=== PATIENT | female | born 1955 | race African-American/Black ===

== ENCOUNTER 2021-07-30 12:24 | Emergency (ER) | payer MEDICARE, MEDICAID ==
[~2021-07-30] VITALS: Ht 162.6 cm; Wt 54.0 kg
[2021-07-30 15:10] LABS: BASOPHILS % 0.6 % (0.0-2.0); EOSINOPHILS % 1.3 % (0.0-5.0); HEMATOCRIT. 34.6 % (36.0-48.0); HEMOGLOBIN. 11.5 g/dL (12.0-16.0); LYMPHOCYTES % 40.2 % (20.0-50.0); MEAN CORPUSCULAR HEMOGLOBIN 30.4 pg (28.0-32.0); MEAN CORPUSCULAR VOLUME 91.4 fL (81.0-99.0); MEAN PLATELET VOLUME 9.1 fl (7.4-10.4); MONOCYTES % 5.3 % (2.0-8.0); NEUTROPHILS % 52.6 % (40.0-76.0); PLATELET 331 x1000/uL (130-400); RED BLOOD CELL COUNT 3.78 mill/uL (4.2-5.4); RED CELL DISTRIBUTION WIDTH 14.8 % (11.6-14.6)
[2021-07-30 15:14] LABS: CHLORIDE 108 mEq/L (98-107)
[2021-07-30 16:21] VITALS: BP 131/77
== END 2021-07-30 17:14 | disposition home or self-care (01) ==
LOC: ER 12:24
DX: Z00.00 Encounter for general adult medical examination without abnormal findings (principal); Z77.120 Contact with and (suspected) exposure to mold (toxic); J45.909 Unspecified asthma, uncomplicated; E78.00 Pure hypercholesterolemia, unspecified; I10 Essential (primary) hypertension; Z88.2 Allergy status to sulfonamides
CPT/HCPCS: 36415; 80053; 85025; 99283; Z7610

== ENCOUNTER 2022-11-28 04:28 | Inpatient (IN) | payer MEDICARE, MEDICAID ==
[~2022-11-28] VITALS: Ht 157.5 cm; Wt 52.6 kg
[2022-11-28] MEDS ORDERED: IPRATROPIUM BROMIDE (0.02%) 0.5MG/2.5ML NEB HHN STA (05:28)
[2022-11-28] MEDS ORDERED: METHYLPREDNISOLONE SOD SUCC 125 MG/2 ML VIAL IV STA (05:28)
[2022-11-28] MEDS: ALBUTEROL (0.083%) 2.5MG/3ML NEB HHN SCH ×3 (05:47→06:16)
[2022-11-28 06:04] LABS: BASOPHILS % 0.8 % (0.0-2.0); HEMATOCRIT. 29.2 % (36.0-48.0); HEMOGLOBIN. 9.5 g/dL (12.0-16.0); LYMPHOCYTES % 31.6 % (20.0-50.0); MEAN CORPUSCULAR HEMOGLOBIN 28.2 pg (28.0-32.0); MEAN PLATELET VOLUME 8.4 fl (7.4-10.4); MONOCYTES % 6.4 % (2.0-8.0); NEUTROPHILS % 60.2 % (40.0-76.0); PLATELET 397 x1000/uL (130-400); RED BLOOD CELL COUNT 3.35 mill/uL (4.2-5.4); RED CELL DISTRIBUTION WIDTH 15.8 % (11.6-14.6)
[2022-11-28 06:05] LABS: CLARITY URINE CLEAR (CLEAR); COLOR URINE YELLOW (YELLOW); KETONES URINE NEGATIVE (NEGATIVE); LEUKOCYTE ESTERASE URINE NEGATIVE (NEGATIVE); NITRITE URINE NEGATIVE (NEGATIVE); OCCULT BLOOD URINE NEGATIVE (NEGATIVE); PH URINE 7.5 (4.5-8.0); PROTEIN URINE 2+ (NEGATIVE); SPECIFIC GRAVITY URINE 1.009 (1.005-1.030); UROBILINOGEN URINE 0.2 E.U./dL (0.2-1.0)
[2022-11-28] MEDS ORDERED: HYDRALAZINE 20MG/ML VIAL IV ONE (06:15)
[2022-11-28 06:16] LABS: CHLORIDE 112 mEq/L (98-107)
[2022-11-28] MEDS ORDERED: DOXYCYCLINE HYCLATE 100 MG/VIAL IV ONE (06:30)
[2022-11-28] MEDS ORDERED: DOXYCYCLINE 100MG in DEXTROSE 5% WATER 100ML IV NR (06:30)
[2022-11-28] MEDS ORDERED: LABETALOL HCL 200MG TABLET PO SCH (11:15)
[2022-11-28] MEDS ORDERED: HYDROCODONE/ACETAMINOPHEN 5/325MG TABLET PO ONE (11:15)
[2022-11-28] MEDS ORDERED: ASPIRIN 81MG TABLET PO ONE (11:15)
[2022-11-28] MEDS ORDERED: AMLODIPINE 10MG TABLET PO ONE (11:15)
[2022-11-28] MEDS ORDERED: CLONIDINE 0.3MG TABLET PO ONE (11:15)
[2022-11-28] MEDS ORDERED: ACETAMINOPHEN 325MG TABLET PO PRN (11:30)
[2022-11-28] MEDS ORDERED: ONDANSETRON HCL 4MG/2ML INJ IV PRN (11:30)
[2022-11-28] MEDS ORDERED: IPRATROPIUM BROMIDE (0.02%) 0.5MG/2.5ML NEB HHN PRN (11:45)
[2022-11-28] MEDS ORDERED: ALBUTEROL (0.083%) 2.5MG/3ML NEB HHN PRN (11:45)
[2022-11-28] MEDS ORDERED: LEVOFLOXACIN 750MG PREMIX 150 ML IV SCH ×2 (12:00→17:30)
[2022-11-28] MEDS ORDERED: IPRATROPIUM/ALBUTEROL 0.5-3(2.5)MG/3ML NEB HHN SCH ×2 (12:00→18:00)
[2022-11-28] MEDS: HYDRALAZINE 20MG/ML VIAL IV ONE ×2 (12:47→12:50)
[2022-11-28 13:45] VITALS: BP 169/103
[2022-11-28 13:56] VITALS: BP 169/103
[2022-11-28] MEDS ORDERED: GUAIFENESIN/CODEINE 100-10MG/5ML UDC PO PRN (15:15)
[2022-11-28 15:26] LABS: *AMPHETAMINES SCREEN URINE NEGATIVE (NEGATIVE); *BARBITURATES SCREEN URINE NEGATIVE (NEGATIVE); *BENZODIAZEPINES SCREEN URINE NEGATIVE (NEGATIVE); *COCAINE SCREEN URINE PRESUMTIVE POSITIVE (NEGATIVE); CANNABINOID URINE SCREEN NEGATIVE (NEGATIVE); METHADONE URINE SCREEN NEGATIVE (NEGATIVE); OPIATES URINE SCREEN NEGATIVE (NEGATIVE); PHENCYCLIDINE URINE SCREEN NEGATIVE (NEGATIVE)
[2022-11-28 16:00] VITALS: BP 181/82
[2022-11-28] MEDS: BENZONATATE 100MG CAPSULE PO SCH ×2 (16:53→20:50)
[2022-11-28] MEDS: PREDNISONE 20MG TABLET PO SCH (16:53)
[2022-11-28 18:00] VITALS: BP 140/58
[2022-11-28] MEDS ORDERED: LABE200T9 PO (18:40)
[2022-11-28] MEDS ORDERED: PHEN-434 PO (18:40)
[2022-11-28] MEDS ORDERED: ASPI-986 MT (18:40)
[2022-11-28] MEDS ORDERED: OMEP20TA15 PO (18:40)
[2022-11-28] MEDS ORDERED: AMLO10TA80 PO (18:40)
[2022-11-28] MEDS ORDERED: BACL-141 MT (18:40)
[2022-11-28 20:00] VITALS: BP 140/58
[2022-11-28] MEDS ORDERED: VANCOMYCIN 1G PREMIX 200 ML IV NR (20:00)
[2022-11-28] MEDS: HYDROCODONE/ACETAMINOPHEN 5/325MG TABLET PO PRN (20:49)
[2022-11-28] MEDS: CLONIDINE 0.1MG TABLET PO PRN (20:49)
[2022-11-28 22:00] VITALS: BP 80/52
[2022-11-29] VITALS (13 sets, daily range): BP systolic 138–194; BP diastolic 64–94
[2022-11-29] MEDS: CLONIDINE 0.1MG TABLET PO PRN ×3 (00:45→13:55)
[2022-11-29] MEDS: HYDROCODONE/ACETAMINOPHEN 5/325MG TABLET PO PRN ×3 (04:34→19:01)
[2022-11-29 06:03] LABS: CHLORIDE 105 mEq/L (98-107)
[2022-11-29 06:16] LABS: BASOPHILS % 0.1 % (0.0-2.0); EOSINOPHILS % 0.2 % (0.0-5.0); HEMOGLOBIN. 8.2 g/dL (12.0-16.0); LYMPHOCYTES % 19.1 % (20.0-50.0); MEAN CORPUSCULAR HEMOGLOBIN 28.3 pg (28.0-32.0); MEAN CORPUSCULAR VOLUME 86.4 fL (81.0-99.0); MEAN PLATELET VOLUME 8.7 fl (7.4-10.4); MONOCYTES % 4.8 % (2.0-8.0); NEUTROPHILS % 75.8 % (40.0-76.0); PLATELET 362 x1000/uL (130-400); RED BLOOD CELL COUNT 2.89 mill/uL (4.2-5.4); RED CELL DISTRIBUTION WIDTH 15.4 % (11.6-14.6)
[2022-11-29] MEDS: VANCOMYCIN 500MG PREMIX 100 ML IV SCH ×2 (08:32→20:51)
[2022-11-29] MEDS: AMLODIPINE 10MG TABLET PO SCH (08:32)
[2022-11-29] MEDS: BENZONATATE 100MG CAPSULE PO SCH ×3 (08:32→21:49)
[2022-11-29] MEDS: PREDNISONE 20MG TABLET PO SCH (08:35)
[2022-11-29] MEDS: BUDESONIDE 0.5MG/2ML NEB HHN SCH ×2 (08:55→21:27)
[2022-11-29] MEDS: ALBUTEROL (0.083%) 2.5MG/3ML NEB HHN SCH ×3 (08:55→21:28)
[2022-11-29] MEDS: IPRATROPIUM BROMIDE (0.02%) 0.5MG/2.5ML NEB HHN SCH ×3 (08:55→21:27)
[2022-11-29] MEDS ORDERED: GUAIFENESIN/CODEINE 200-20MG/10ML UDC PO PRN (09:14)
[2022-11-29] MEDS ORDERED: NALOXONE HCL 0.4MG/ML VIAL IV PRN (09:15)
[2022-11-29] MEDS: OMEPRAZOLE 20MG CAPSULE EXTENDED RELEASE PO SCH (09:33)
[2022-11-29] MEDS ORDERED: P20 PO (11:37)
[2022-11-29] MEDS ORDERED: LEVO750T68 MT (11:37)
[2022-11-29] MEDS ORDERED: FLUT1DIS3 INH (11:37)
[2022-11-29] MEDS: LABETALOL HCL 200MG TABLET PO SCH (12:28)
[2022-11-29] MEDS: GABAPENTIN 400MG CAPSULE PO SCH ×2 (13:24→20:52)
[2022-11-29] MEDS ORDERED: PHENYTOIN SODIUM EXTENDED 100MG CAPSULE PO SCH (14:00)
[2022-11-29] MEDS ORDERED: QUET200T PO (21:24)
[2022-11-29] MEDS: QUETIAPINE FUMARATE 50MG TABLET PO SCH (21:49)
[2022-11-30] VITALS (10 sets, daily range): BP systolic 147–195; BP diastolic 63–103
[2022-11-30] MEDS: ALBUTEROL (0.083%) 2.5MG/3ML NEB HHN SCH ×3 (02:56→15:20)
[2022-11-30] MEDS: IPRATROPIUM BROMIDE (0.02%) 0.5MG/2.5ML NEB HHN SCH ×3 (02:56→15:20)
[2022-11-30] MEDS: GABAPENTIN 400MG CAPSULE PO SCH ×2 (05:19→14:32)
[2022-11-30] MEDS: BENZONATATE 100MG CAPSULE PO SCH ×2 (05:20→14:32)
[2022-11-30] MEDS: OMEPRAZOLE 20MG CAPSULE EXTENDED RELEASE PO SCH (05:20)
[2022-11-30] MEDS: HYDROCODONE/ACETAMINOPHEN 5/325MG TABLET PO PRN ×2 (05:28→10:26)
[2022-11-30 06:12] LABS: HIV SCREEN 4G Non Reactive (Non Reactive)
[2022-11-30] MEDS: QUETIAPINE FUMARATE 50MG TABLET PO SCH (08:14)
[2022-11-30] MEDS: AMLODIPINE 10MG TABLET PO SCH (08:15)
[2022-11-30] MEDS: LABETALOL HCL 200MG TABLET PO SCH (08:15)
[2022-11-30] MEDS: PREDNISONE 20MG TABLET PO SCH (08:15)
[2022-11-30] MEDS: VANCOMYCIN 500MG PREMIX 100 ML IV SCH (08:24)
[2022-11-30] MEDS: BUDESONIDE 0.5MG/2ML NEB HHN SCH (08:44)
[2022-11-30] MEDS ORDERED: LEVOFLOXACIN 750MG PREMIX 150 ML IV SCH (11:00)
[2022-11-30] MEDS: CLONIDINE 0.1MG TABLET PO PRN (16:55)
[2022-12-01] MEDS ORDERED: FAMOTIDINE 20MG TABLET PO SCH (09:00)
== END 2022-11-30 19:10 | disposition home or self-care (01) | DRG 139 ==
LOC: ER 04:28 → 5EST 10:47 → EDBEDREQTM 10:49 → EDBEDREQSVC 10:49 → EDBEDREQ 10:49 → EDBEDREQSVC 11:57
PROVIDERS: ADMIT Internal Medicine; ATTEND Internal Medicine
DX: J18.9 Pneumonia, unspecified organism (principal); J96.00 Acute respiratory failure, unspecified whether with hypoxia or hypercapnia; J44.1 Chronic obstructive pulmonary disease with (acute) exacerbation; B19.20 Unspecified viral hepatitis C without hepatic coma; E21.3 Hyperparathyroidism, unspecified; I10 Essential (primary) hypertension; Z20.822 Contact with and (suspected) exposure to COVID-19; E78.00 Pure hypercholesterolemia, unspecified; D72.829 Elevated white blood cell count, unspecified; E78.5 Hyperlipidemia, unspecified; F14.90 Cocaine use, unspecified, uncomplicated; F17.210 Nicotine dependence, cigarettes, uncomplicated; Z88.2 Allergy status to sulfonamides; Z88.8 Allergy status to other drugs, medicaments and biological substances; Z88.1 Allergy status to other antibiotic agents; Z79.899 Other long term (current) drug therapy; J44.0 Chronic obstructive pulmonary disease with (acute) lower respiratory infection
CPT/HCPCS: 36415; 71045; 80048; 80053; 80202; 80305; 81003; 83605; 84145; 84484; 85025; 85379; 87389; 87426; 87804; 93005; 94640; 94644; 99291; C9803; J0360; J1956; J2405; J2930; J3370; J3490; J7060; J7512; J7626

== ENCOUNTER 2024-07-13 00:44 | Inpatient (IN) | payer MEDICARE, MEDICAID ==
[~2024-07-13] VITALS: Ht 157.5 cm; Wt 59.0 kg
[2024-07-13] VITALS (87 sets, daily range): BP systolic 118–212; BP diastolic 56–106; PULSE 118–134; RESP 12–29; TEMP 36.78072–37.1964; O2SAT 96–100
[~2024-07-13 00:44] MED LIST: ASPI-986 MT; CLON0.2T MT; DILT120C88 MT; FAMO-135 MT; FLUT1DIS3 INH; LOSA50TA41 PO; OMEP20TA15 PO; QUET200T PO
[2024-07-13 01:12] LABS: BASOPHILS % 0.7 % (0.0-2.0); DIFFERENTIAL COMMENT 0; EOSINOPHILS % 0.5 % (0.0-5.0); HEMATOCRIT. 25.6 % (36.0-48.0); HEMOGLOBIN. 7.5 g/dL (12.0-16.0); LYMPHOCYTES % 38.7 % (20.0-50.0); MEAN CORPUSCULAR HEMOGLOBIN 26.2 pg (28.0-32.0); MEAN CORPUSCULAR HGB CONC 29.5 g/dL (31.0-37.0); MEAN CORPUSCULAR VOLUME 88.9 fL (81.0-99.0); MEAN PLATELET VOLUME 10.1 fl (7.4-10.4); MONOCYTES % 6.5 % (2.0-8.0); NEUTROPHILS % 53.6 % (40.0-76.0); PLATELET 456 x1000/uL (130-400); RED BLOOD CELL COUNT 2.88 mill/uL (4.2-5.4); RED CELL DISTRIBUTION WIDTH 18.2 % (11.6-14.6); WHITE BLOOD COUNT 28.7 x1000/uL (4.5-11.0)
[2024-07-13] MEDS: PROPOFOL 10MG/ML 100ML 100 ML IV ONE (01:25)
[2024-07-13] MEDS ORDERED: MIDAZOLAM 100MG/100ML PMX 100 ML IV PRN (01:30)
[2024-07-13 01:32] LABS: CHLORIDE 108 mEq/L (98-107); POTASSIUM 4.7 mEq/L (3.5-5.1); SODIUM 140 mEq/L (136-145)
[2024-07-13 01:33] LABS: CARBON DIOXIDE 21 mEq/L (21-32)
[2024-07-13 01:37] LABS: BG BASE EXCESS -8.9 mmol/L (-2.0-3.0); BG CARBOXYHEMOGLOBIN 2.6 % (0.5-1.5); BG DEOXYHEMOGLOBIN 7.9 % (0.0-5.0); BG FRACTION INSPIRED OXYGEN 100; BG HCO3 ACT 19.5 mmol/L (21.0-28.0); BG OXYGEN SATURATION 91.9 % (94.0-98.0); BG OXYHEMOGLOBIN 89.5 % (94.0-98.0); BG PH 7.159 (7.350-7.450); BG PO2 79.7 mmHg (83.0-108.0); BG SAMPLE SITE RIGHT RADIAL; BG TOTAL HEMOGLOBIN 8.4 g/dL (12.0-16.0); BG VENT MODE VENT - AC
[2024-07-13 01:38] LABS: CREATININE 2.1 mg/dL (0.6-1.0); GLUCOSE 250 mg/dL (70-105); UREA NITROGEN BLOOD 30 mg/dL (9-23)
[2024-07-13] MEDS: MIDAZOLAM 100MG/100ML PMX 100 ML IV PRN ×2 (01:46→12:32)
[2024-07-13] MEDS: EPINEPHRINE 1:1000 1 MG/ML AMP IM NR (01:47)
[2024-07-13] MEDS: METHYLPREDNISOLONE SOD SUCC 125MG/2ML (ACT-O-VIAL) IV NR (01:47)
[2024-07-13 01:48] LABS: ETHANOL BLOOD < 10 mg/dL (<10)
[2024-07-13] MEDS: ETOMIDATE 2MG/ML 10ML VIAL IV ONE (01:48)
[2024-07-13] MEDS: SUCCINYLCHOLINE CHLORIDE 200MG/10ML IV ONE (01:48)
[2024-07-13 01:49] LABS: TROPONIN I HIGH SENSITIVITY 102 ng/L (3.0-34)
[2024-07-13 01:53] LABS: LACTIC ACID 5.5 mmol/L (0.4-2.0)
[2024-07-13] MEDS ORDERED: NICARDIPINE 40MG/200ML PREMIX 200 ML IV PRN (02:00)
[2024-07-13] MEDS: ALBUTEROL (0.083%) 2.5MG/3ML NEB HHN NR (02:24)
[2024-07-13] MEDS: IPRATROPIUM BROMIDE (0.02%) 0.5MG/2.5ML NEB HHN NR (02:25)
[2024-07-13] MEDS ORDERED: ONDANSETRON HCL 4MG/2ML INJ IV PRN (05:15)
[2024-07-13] MEDS ORDERED: IPRATROPIUM/ALBUTEROL 0.5-3(2.5)MG/3ML NEB NEB PRN (05:15)
[2024-07-13] MEDS ORDERED: PIPERACILLIN/TAZO 3.375G/50ML 50 ML IV NR (06:00)
[2024-07-13] MEDS: SODIUM CHLORIDE 0.9% 3ML FLUSH IVF SCH (06:00)
[2024-07-13] MEDS: NICARDIPINE 100 MG in SODIUM CHLORIDE 0.9% 60 ML IV PRN (06:18)
[2024-07-13] MEDS: PROPOFOL 10MG/ML 100ML 100 ML IV PRN (06:19)
[2024-07-13] MEDS: LEVOFLOXACIN 500MG PREMIX 100 ML IV NR (06:31)
[2024-07-13] MEDS: METHYLPREDNISOLONE SOD SUCC 125MG/2ML (ACT-O-VIAL) IV SCH (06:31)
[2024-07-13] MEDS: VANCOMYCIN 1G PREMIX 200 ML IV NR (06:34)
[2024-07-13] MEDS: IPRATROPIUM/ALBUTEROL 0.5-3(2.5)MG/3ML NEB HHN SCH (08:28)
[2024-07-13 09:23] LABS: BG BASE EXCESS -0.6 mmol/L (-2.0-3.0); BG CARBOXYHEMOGLOBIN 0.5 % (0.5-1.5); BG DEOXYHEMOGLOBIN 1.7 % (0.0-5.0); BG FRACTION INSPIRED OXYGEN 100; BG HCO3 ACT 24.2 mmol/L (21.0-28.0); BG METHEMOGLOBIN 0.3 % (0.5-1.5); BG OXYGEN SATURATION 98.3 % (94.0-98.0); BG OXYHEMOGLOBIN 97.5 % (94.0-98.0); BG PCO2 40.3 mmHg (32.0-45.0); BG PH 7.396 (7.350-7.450); BG PO2 96.5 mmHg (83.0-108.0); BG SAMPLE SITE LEFT BRACHIAL; BG TOTAL HEMOGLOBIN 7.7 g/dL (12.0-16.0); BG VENT MODE VENT - AC
[2024-07-13] MEDS: PANTOPRAZOLE SODIUM 40 MG/VIAL IV SCH ×2 (09:47→16:30)
[2024-07-13 11:02] LABS: CLARITY URINE CLEAR (CLEAR); COLOR URINE YELLOW (YELLOW); GLUCOSE URINE TRACE (NEGATIVE); KETONES URINE NEGATIVE (NEGATIVE); LEUKOCYTE ESTERASE URINE NEGATIVE (NEGATIVE); NITRITE URINE NEGATIVE (NEGATIVE); OCCULT BLOOD URINE NEGATIVE (NEGATIVE); PH URINE 7.5 (4.5-8.0); PROTEIN URINE 2+ (NEGATIVE); SPECIFIC GRAVITY URINE 1.013 (1.005-1.030); UROBILINOGEN URINE 0.2 E.U./dL (0.2-1.0)
[2024-07-13 11:28] LABS: *AMPHETAMINES SCREEN URINE PRESUMPTIVE POSITIVE (NEGATIVE); *BARBITURATES SCREEN URINE NEGATIVE (NEGATIVE); *BENZODIAZEPINES SCREEN URINE PRESUMPTIVE POSITIVE (NEGATIVE); *COCAINE SCREEN URINE PRESUMPTIVE POSITIVE (NEGATIVE); CANNABINOID URINE SCREEN NEGATIVE (NEGATIVE); METHADONE URINE SCREEN NEGATIVE (NEGATIVE); OPIATES URINE SCREEN NEGATIVE (NEGATIVE); PHENCYCLIDINE URINE SCREEN NEGATIVE (NEGATIVE)
[2024-07-13 11:29] LABS: ECSTASY MDMA SCREEN URINE NEGATIVE (NEGATIVE)
[2024-07-13 11:33] LABS: BACTERIA URINE FEW; RBC URINE 0-2 /hpf (0-2); SQUAMOUS EPITHELIAL CELL URINE NONE SEEN /lpf (RARE/1+); WBC URINE 0-2 /hpf (0-2); YEAST URINE NONE SEEN
[2024-07-13] MEDS ORDERED: IPRATROPIUM/ALBUTEROL 0.5-3(2.5)MG/3ML NEB HHN SCH (12:00)
[2024-07-13] MEDS: LEVOFLOXACIN 250MG PREMIX 50 ML IV SCH (15:16)
[2024-07-13] MEDS ORDERED: CEFEPIME 2GM IN DEXT 5% 100ML IV SCH (16:30)
[2024-07-13] MEDS ORDERED: DEXTROSE 50% WATER 50ML SYRINGE IV PRN (16:30)
[2024-07-13] MEDS: BLOOD SUGAR DIAGNOSTIC STRIP TEST SCH (16:53)
[2024-07-13] MEDS ORDERED: CEFEPIME 1GM/50ML 50 ML IV SCH (17:00)
[2024-07-13] MEDS: CEFEPIME 1GM/50ML 50 ML IV SCH (17:59)
[2024-07-13] MEDS: METRONIDAZOLE 500 MG PREMIX 100 ML IV SCH (18:00)
[2024-07-13 20:03] LABS: TRIGLYCERIDE 31 mg/dL (0-150)
[2024-07-13 20:16] LABS: TROPONIN I HIGH SENSITIVITY 138 ng/L (3.0-34)
[2024-07-13] MEDS: ACETAMINOPHEN 650MG/20.3ML UDC GT PRN (20:22)
[2024-07-14] VITALS (110 sets, daily range): BP systolic 130–173; BP diastolic 52–83; PULSE 108–144; RESP 15–33; TEMP 37.11408–37.44744; O2SAT 95–100
[2024-07-14] MEDS ORDERED: LEVOFLOXACIN 250MG PREMIX 50 ML IV SCH (08:00)
[2024-07-14 09:57] LABS: BG BASE EXCESS -3.1 mmol/L (-2.0-3.0); BG CARBOXYHEMOGLOBIN 0.3 % (0.5-1.5); BG DEOXYHEMOGLOBIN 1.9 % (0.0-5.0); BG FRACTION INSPIRED OXYGEN 65; BG METHEMOGLOBIN 0.1 % (0.5-1.5); BG OXYGEN SATURATION 98.1 % (94.0-98.0); BG OXYHEMOGLOBIN 97.7 % (94.0-98.0); BG PCO2 33.5 mmHg (32.0-45.0); BG PH 7.416 (7.350-7.450); BG PO2 99.1 mmHg (83.0-108.0); BG SAMPLE SITE RIGHT BRACHIAL; BG TOTAL HEMOGLOBIN 7.3 g/dL (12.0-16.0); BG TOTAL RESPIRATORY RATE 18 b/min; BG VENT MODE VENT - AC
[2024-07-14 10:03] LABS: CALCIUM 9.9 mg/dL (8.7-10.4)
[2024-07-14 10:07] LABS: CREATININE 2.7 mg/dL (0.6-1.0); MEAN CORPUSCULAR HEMOGLOBIN 26.6 pg (28.0-32.0); MEAN CORPUSCULAR HGB CONC 31.4 g/dL (31.0-37.0); MEAN CORPUSCULAR VOLUME 84.6 fL (81.0-99.0); PLATELET 406 x1000/uL (130-400); RED BLOOD CELL COUNT 2.41 mill/uL (4.2-5.4); RED CELL DISTRIBUTION WIDTH 18.8 % (11.6-14.6)
[2024-07-14 10:12] LABS: HEMATOCRIT 20.4 % (36.0-48.0); HEMOGLOBIN 6.4 g/dL (12.0-16.0)
[2024-07-14 11:04] LABS: POTASSIUM 6.5 mEq/L (3.5-5.1)
[2024-07-14] MEDS: SODIUM POLYSTYRENE SULFONATE 15 G/60 ML BOT NG NR (11:42)
[2024-07-14] MEDS: INSULIN REGULAR (HUMULIN R) 1000UNITS/10ML VIAL IV NR (11:43)
[2024-07-14] MEDS: DEXTROSE 50% WATER 50ML SYRINGE IV NR (11:44)
[2024-07-14] MEDS: DEXT 5%/0.45% NACL 1000ML 1,000 ML IV SCH (11:46)
[2024-07-14] MEDS: PROPOFOL 10MG/ML 100ML 100 ML IV PRN (13:00)
[2024-07-14 13:19] LABS: LACTATE DEHYDROGENASE 392 IU/L (120-246)
[2024-07-14 13:20] LABS: CREATINE KINASE 174 IU/L (34-145)
[2024-07-14] MEDS: CEFEPIME 2GM/100ML 100 ML IV SCH (15:44)
[2024-07-14 19:00] LABS: HEMATOCRIT 28.7 % (36.0-48.0); HEMOGLOBIN 9.1 g/dL (12.0-16.0)
[2024-07-14] MEDS: HYDRALAZINE 20MG/ML VIAL IV PRN (19:09)
[2024-07-14] MEDS: ACETAMINOPHEN 650MG/20.3ML UDC GT PRN (19:09)
[2024-07-14] MEDS ORDERED: NALOXONE HCL 0.4MG/ML VIAL IV PRN (19:15)
[2024-07-14] MEDS: SODIUM ZIRCONIUM CYCLOSILICATE 10GM/PACKET PO NR (20:38)
[2024-07-14] MEDS: HYDROCODONE/ACETAMINOPHEN 10/325MG TABLET PO PRN (20:50)
[2024-07-14 20:59] LABS: POTASSIUM 5.3 mEq/L (3.5-5.1)
[2024-07-14] MEDS: METHYLPREDNISOLONE SOD SUCC 40MG/ML (ACT-O-VIAL) IV SCH (23:11)
[2024-07-15] VITALS (114 sets, daily range): BP systolic 119–162; BP diastolic 49–142; PULSE 104–137; RESP 14–29; TEMP 36.72516–37.11408; O2SAT 96–100
[2024-07-15 05:29] LABS: HEMATOCRIT. 23.9 % (36.0-48.0); HEMOGLOBIN. 7.6 g/dL (12.0-16.0); MEAN CORPUSCULAR HEMOGLOBIN 26.8 pg (28.0-32.0); MEAN CORPUSCULAR HGB CONC 31.7 g/dL (31.0-37.0); MEAN CORPUSCULAR VOLUME 84.6 fL (81.0-99.0); MEAN PLATELET VOLUME 10.3 fl (7.4-10.4); PLATELET 393 x1000/uL (130-400); RED BLOOD CELL COUNT 2.83 mill/uL (4.2-5.4); RED CELL DISTRIBUTION WIDTH 17.2 % (11.6-14.6); WHITE BLOOD COUNT 21.2 x1000/uL (4.5-11.0)
[2024-07-15 05:33] LABS: CHLORIDE 108 mEq/L (98-107); POTASSIUM 4.5 mEq/L (3.5-5.1); SODIUM 138 mEq/L (136-145)
[2024-07-15 05:36] LABS: CALCIUM 9.2 mg/dL (8.7-10.4); CARBON DIOXIDE 19 mEq/L (21-32)
[2024-07-15 05:41] LABS: CREATININE 3.1 mg/dL (0.6-1.0); GLUCOSE 138 mg/dL (70-105)
[2024-07-15 05:42] LABS: UREA NITROGEN BLOOD 54 mg/dL (9-23)
[2024-07-15 05:43] LABS: ALANINE AMINOTRANSFERASE 40 IU/L (10-49); ALBUMIN 3.5 g/dL (3.2-4.8); ASPARTATE AMINOTRANSFERASE 55 IU/L (<34)
[2024-07-15 05:44] LABS: BILIRUBIN DIRECT 0.1 mg/dL (<=3.0); BILIRUBIN TOTAL 0.4 mg/dL (0.1-1.0); PHOSPHORUS 5.1 mg/dL (2.5-4.9); PROTEIN TOTAL 6.2 g/dL (6.0-8.3)
[2024-07-15 07:41] LABS: DIFFERENTIAL COMMENT 1
[2024-07-15] MEDS ORDERED: LEVOFLOXACIN 750MG PREMIX 150 ML IV SCH (11:00)
[2024-07-15] MEDS: HYDRALAZINE HCL 100MG TABLET NG SCH (14:40)
[2024-07-15] MEDS: CLONIDINE 0.1MG TABLET NG SCH (14:40)
[2024-07-15] MEDS: AMLODIPINE 10MG TABLET NG SCH (14:40)
[2024-07-15 16:09] LABS: ANISOCYTOSIS 1+; PLATELET ESTIMATE NORMAL
[2024-07-15] MEDS: PROPOFOL 10MG/ML 100ML 100 ML IV PRN (19:55)
[2024-07-15] MEDS: MINOXIDIL 2.5MG TABLET PO SCH (21:22)
[2024-07-16] VITALS (107 sets, daily range): BP systolic 102–181; BP diastolic 38–80; PULSE 94–133; RESP 14–29; TEMP 36.44736–36.9474; O2SAT 97–100
[2024-07-16 05:37] LABS: MEAN CORPUSCULAR HEMOGLOBIN 26.8 pg (28.0-32.0); MEAN CORPUSCULAR HGB CONC 30.6 g/dL (31.0-37.0); MEAN CORPUSCULAR VOLUME 87.6 fL (81.0-99.0); MEAN PLATELET VOLUME 9.7 fl (7.4-10.4); PLATELET 449 x1000/uL (130-400); RED BLOOD CELL COUNT 3.36 mill/uL (4.2-5.4); RED CELL DISTRIBUTION WIDTH 17.8 % (11.6-14.6); WHITE BLOOD COUNT 27.9 x1000/uL (4.5-11.0)
[2024-07-16 05:52] LABS: CHLORIDE 108 mEq/L (98-107); POTASSIUM 4.7 mEq/L (3.5-5.1); SODIUM 138 mEq/L (136-145)
[2024-07-16 05:53] LABS: CARBON DIOXIDE 16 mEq/L (21-32)
[2024-07-16 05:54] LABS: CALCIUM 9.3 mg/dL (8.7-10.4)
[2024-07-16 06:32] LABS: DIFFERENTIAL COMMENT 1
[2024-07-16 06:34] LABS: HEMATOCRIT. 29.4 % (36.0-48.0)
[2024-07-16 06:51] LABS: CREATININE 3.1 mg/dL (0.6-1.0); GLUCOSE 103 mg/dL (70-105); TRIGLYCERIDE 89 mg/dL (0-150); UREA NITROGEN BLOOD 54 mg/dL (9-23)
[2024-07-16 06:53] LABS: ALANINE AMINOTRANSFERASE 32 IU/L (10-49); ALBUMIN 3.6 g/dL (3.2-4.8); ASPARTATE AMINOTRANSFERASE 42 IU/L (<34); BILIRUBIN TOTAL 0.2 mg/dL (0.1-1.0)
[2024-07-16 06:54] LABS: PROTEIN TOTAL 6.4 g/dL (6.0-8.3)
[2024-07-16 06:55] LABS: BILIRUBIN DIRECT < 0.1 mg/dL (<=3.0)
[2024-07-16 10:24] LABS: ANISOCYTOSIS 1+; PLATELET ESTIMATE SLIGHTLY INCREASED
[2024-07-16] MEDS: CLONIDINE 0.2MG TABLET NG SCH (13:17)
[2024-07-16] MEDS: PROPOFOL 10MG/ML 100ML 100 ML IV PRN (22:01)
[2024-07-17] VITALS (112 sets, daily range): BP systolic 93–195; BP diastolic 39–108; PULSE 92–135; RESP 4–28; TEMP 36.50292–36.78072; O2SAT 95–100
[2024-07-17 05:43] LABS: HEMATOCRIT. 26.9 % (36.0-48.0); HEMOGLOBIN. 8.4 g/dL (12.0-16.0); MEAN CORPUSCULAR HEMOGLOBIN 27.1 pg (28.0-32.0); MEAN CORPUSCULAR HGB CONC 31.3 g/dL (31.0-37.0); MEAN CORPUSCULAR VOLUME 86.7 fL (81.0-99.0); MEAN PLATELET VOLUME 9.5 fl (7.4-10.4); PLATELET 373 x1000/uL (130-400); RED BLOOD CELL COUNT 3.11 mill/uL (4.2-5.4); RED CELL DISTRIBUTION WIDTH 17.8 % (11.6-14.6); WHITE BLOOD COUNT 24.5 x1000/uL (4.5-11.0)
[2024-07-17 06:00] LABS: DIFFERENTIAL COMMENT 1
[2024-07-17] MEDS ORDERED: LIDOCAINE HCL 1% 10 MG/ML 10ML VIAL ONE (07:10)
[2024-07-17 08:33] LABS: CHLORIDE 108 mEq/L (98-107); POTASSIUM 3.5 mEq/L (3.5-5.1); SODIUM 139 mEq/L (136-145)
[2024-07-17 08:34] LABS: CARBON DIOXIDE 18 mEq/L (21-32)
[2024-07-17 08:35] LABS: CALCIUM 8.8 mg/dL (8.7-10.4)
[2024-07-17 08:39] LABS: CREATININE 2.9 mg/dL (0.6-1.0); GLUCOSE 109 mg/dL (70-105)
[2024-07-17 08:40] LABS: TRIGLYCERIDE 76 mg/dL (0-150); UREA NITROGEN BLOOD 61 mg/dL (9-23)
[2024-07-17 08:42] LABS: PHOSPHORUS 6.8 mg/dL (2.5-4.9)
[2024-07-17 09:21] LABS: ANISOCYTOSIS 1+; PLATELET ESTIMATE NORMAL
[2024-07-17] MEDS: POTASSIUM CHLORIDE 20MEQ/PACKET PO NR (09:23)
[2024-07-17] MEDS: QUETIAPINE FUMARATE 25MG TABLET PO SCH (11:53)
[2024-07-17 12:13] LABS: BG BASE EXCESS -8.3 mmol/L (-2.0-3.0); BG CARBOXYHEMOGLOBIN 0.1 % (0.5-1.5); BG DEOXYHEMOGLOBIN 1.5 % (0.0-5.0); BG FRACTION INSPIRED OXYGEN 35; BG HCO3 ACT 16.3 mmol/L (21.0-28.0); BG METHEMOGLOBIN 0.1 % (0.5-1.5); BG OXYGEN SATURATION 98.5 % (94.0-98.0); BG OXYHEMOGLOBIN 98.3 % (94.0-98.0); BG PCO2 30.2 mmHg (32.0-45.0); BG PO2 110.5 mmHg (83.0-108.0); BG SAMPLE SITE RIGHT BRACHIAL; BG TOTAL HEMOGLOBIN 9.5 g/dL (12.0-16.0); BG VENT MODE VENT - CPAP
[2024-07-17] MEDS: CLONIDINE 0.3MG TABLET NG SCH (14:36)
[2024-07-17] MEDS: METHYLPREDNISOLONE SOD SUCC 40MG/ML (ACT-O-VIAL) IV SCH (16:29)
[2024-07-17] MEDS: DEXMEDETOMIDINE 400 MCG/100 ML 100 ML IV PRN (20:33)
[2024-07-17] MEDS ORDERED: METHYLPREDNISOLONE SOD SUCC 40MG/ML (ACT-O-VIAL) IV SCH (21:00)
[2024-07-18] VITALS (108 sets, daily range): BP systolic 84–160; BP diastolic 40–84; PULSE 86–127; RESP 8–25; TEMP 36.44736–37.00296; O2SAT 97–100
[2024-07-18 06:01] LABS: HEMATOCRIT. 23.6 % (36.0-48.0); HEMOGLOBIN. 7.5 g/dL (12.0-16.0); MEAN CORPUSCULAR HEMOGLOBIN 26.6 pg (28.0-32.0); MEAN CORPUSCULAR HGB CONC 31.9 g/dL (31.0-37.0); MEAN CORPUSCULAR VOLUME 83.3 fL (81.0-99.0); MEAN PLATELET VOLUME 9.3 fl (7.4-10.4); PLATELET 340 x1000/uL (130-400); RED BLOOD CELL COUNT 2.83 mill/uL (4.2-5.4); RED CELL DISTRIBUTION WIDTH 17.3 % (11.6-14.6); WHITE BLOOD COUNT 19.5 x1000/uL (4.5-11.0)
[2024-07-18 06:05] LABS: DIFFERENTIAL COMMENT 1
[2024-07-18 06:11] LABS: POTASSIUM 3.4 mEq/L (3.5-5.1)
[2024-07-18 06:17] LABS: CREATININE 2.8 mg/dL (0.6-1.0)
[2024-07-18 06:19] LABS: ALBUMIN 3.2 g/dL (3.2-4.8)
[2024-07-18 06:20] LABS: PREALBUMIN 21.4 mg/dl (10.0-40.0)
[2024-07-18] MEDS: KCL 20MEQ/100ML PREMIX 100 ML IV NR (09:56)
[2024-07-18 10:09] LABS: BG BASE EXCESS -6.7 mmol/L (-2.0-3.0); BG CARBOXYHEMOGLOBIN 0.4 % (0.5-1.5); BG DEOXYHEMOGLOBIN 1.3 % (0.0-5.0); BG FRACTION INSPIRED OXYGEN 35; BG HCO3 ACT 18.1 mmol/L (21.0-28.0); BG METHEMOGLOBIN 0.2 % (0.5-1.5); BG OXYGEN SATURATION 98.7 % (94.0-98.0); BG OXYHEMOGLOBIN 98.1 % (94.0-98.0); BG PCO2 33.1 mmHg (32.0-45.0); BG PH 7.356 (7.350-7.450); BG PO2 121.5 mmHg (83.0-108.0); BG SAMPLE SITE RIGHT RADIAL; BG TOTAL HEMOGLOBIN 8.6 g/dL (12.0-16.0); BG VENT MODE VENT - CPAP
[2024-07-18] MEDS: POTASSIUM CHLORIDE 20MEQ/PACKET PO SCH (12:24)
[2024-07-18] MEDS: SODIUM BICARBONATE 50 MEQ in DEXTROSE 5% WATER 950 ML IV SCH (14:08)
[2024-07-18 16:22] LABS: PLATELET ESTIMATE NORMAL
[2024-07-19] VITALS (72 sets, daily range): BP systolic 94–174; BP diastolic 44–80; PULSE 85–130; RESP 9–28; TEMP 36.44736–37.00296; O2SAT 95–100
[2024-07-19 04:38] LABS: BASOPHILS % 0.1 % (0.0-2.0); EOSINOPHILS % 0.1 % (0.0-5.0); HEMATOCRIT. 22.4 % (36.0-48.0); LYMPHOCYTES % 8.2 % (20.0-50.0); MEAN CORPUSCULAR HEMOGLOBIN 26.8 pg (28.0-32.0); MEAN CORPUSCULAR HGB CONC 31.3 g/dL (31.0-37.0); MEAN CORPUSCULAR VOLUME 85.5 fL (81.0-99.0); MONOCYTES % 7.7 % (2.0-8.0); NEUTROPHILS % 83.9 % (40.0-76.0); PLATELET 340 x1000/uL (130-400); RED BLOOD CELL COUNT 2.63 mill/uL (4.2-5.4); RED CELL DISTRIBUTION WIDTH 17.1 % (11.6-14.6)
[2024-07-19 04:45] LABS: CALCIUM 9.4 mg/dL (8.7-10.4); CARBON DIOXIDE 19 mEq/L (21-32); CHLORIDE 110 mEq/L (98-107); POTASSIUM 3.7 mEq/L (3.5-5.1); SODIUM 139 mEq/L (136-145)
[2024-07-19 04:51] LABS: CREATININE 2.7 mg/dL (0.6-1.0); GLUCOSE 93 mg/dL (70-105); UREA NITROGEN BLOOD 67 mg/dL (9-23)
[2024-07-19 04:53] LABS: PHOSPHORUS 5.7 mg/dL (2.5-4.9)
[2024-07-19 12:17] LABS: BG BASE EXCESS -4.6 mmol/L (-2.0-3.0); BG CARBOXYHEMOGLOBIN 0.2 % (0.5-1.5); BG DEOXYHEMOGLOBIN 2.3 % (0.0-5.0); BG FRACTION INSPIRED OXYGEN 35; BG HCO3 ACT 20.1 mmol/L (21.0-28.0); BG METHEMOGLOBIN 0.1 % (0.5-1.5); BG OXYGEN SATURATION 97.7 % (94.0-98.0); BG OXYHEMOGLOBIN 97.4 % (94.0-98.0); BG PCO2 35.6 mmHg (32.0-45.0); BG PO2 102.6 mmHg (83.0-108.0); BG SAMPLE SITE LEFT RADIAL; BG TOTAL HEMOGLOBIN 9.7 g/dL (12.0-16.0); BG VENT MODE VENT - CPAP
[2024-07-19] MEDS: RACEPINEPHRINE 2.25% 0.5ML NEB VIAL HHN PRN (13:46)
[2024-07-19] MEDS: BUDESONIDE 0.5MG/2ML NEB HHN SCH (13:46)
[2024-07-19] MEDS: POTASSIUM CHLORIDE 20MEQ/PACKET PO NR (15:03)
[2024-07-20] VITALS (60 sets, daily range): BP systolic 87–181; BP diastolic 40–83; PULSE 92–129; RESP 0–25; TEMP 36.33624–36.9474; O2SAT 92–100
[2024-07-20 06:19] LABS: BASOPHILS % 0.2 % (0.0-2.0); DIFFERENTIAL COMMENT 0; EOSINOPHILS % 0.3 % (0.0-5.0); LYMPHOCYTES % 12.3 % (20.0-50.0); MEAN CORPUSCULAR HEMOGLOBIN 26.8 pg (28.0-32.0); MEAN CORPUSCULAR HGB CONC 32.6 g/dL (31.0-37.0); MEAN CORPUSCULAR VOLUME 82.2 fL (81.0-99.0); MEAN PLATELET VOLUME 8.8 fl (7.4-10.4); MONOCYTES % 9.7 % (2.0-8.0); NEUTROPHILS % 77.5 % (40.0-76.0); PLATELET 335 x1000/uL (130-400); RED BLOOD CELL COUNT 2.54 mill/uL (4.2-5.4); RED CELL DISTRIBUTION WIDTH 17.5 % (11.6-14.6); WHITE BLOOD COUNT 21.8 x1000/uL (4.5-11.0)
[2024-07-20 06:31] LABS: CHLORIDE 109 mEq/L (98-107); POTASSIUM 3.8 mEq/L (3.5-5.1); SODIUM 140 mEq/L (136-145)
[2024-07-20 06:32] LABS: CARBON DIOXIDE 22 mEq/L (21-32)
[2024-07-20 06:33] LABS: CALCIUM 9.6 mg/dL (8.7-10.4)
[2024-07-20 06:37] LABS: CREATININE 2.5 mg/dL (0.6-1.0); GLUCOSE 82 mg/dL (70-105)
[2024-07-20 06:38] LABS: HEMOGLOBIN. 6.8 g/dL (12.0-16.0); UREA NITROGEN BLOOD 69 mg/dL (9-23)
[2024-07-20 06:39] LABS: HEMATOCRIT. 20.9 % (36.0-48.0)
[2024-07-20 06:40] LABS: PHOSPHORUS 5.1 mg/dL (2.5-4.9)
[2024-07-20] MEDS: BISACODYL 10MG SUPP PR NR (10:21)
[2024-07-20] MEDS: POTASSIUM CHLORIDE 20MEQ/PACKET PO SCH (14:30)
[2024-07-20 15:24] LABS: HEMOGLOBIN 9.3 g/dL (12.0-16.0)
[2024-07-20] MEDS ORDERED: POTASSIUM CHLORIDE 20MEQ TABLET SR PO ONE (17:00)
[2024-07-21] VITALS (19 sets, daily range): BP systolic 107–202; BP diastolic 55–100; PULSE 72–136; RESP 13–21; TEMP 36.44736–36.9474; O2SAT 89–99
[2024-07-21] MEDS: CLONIDINE 0.3MG TABLET PO PRN (00:52)
[2024-07-21 05:45] LABS: HEMATOCRIT. 25.3 % (36.0-48.0); HEMOGLOBIN. 8.2 g/dL (12.0-16.0); MEAN CORPUSCULAR HEMOGLOBIN 27.6 pg (28.0-32.0); MEAN CORPUSCULAR HGB CONC 32.4 g/dL (31.0-37.0); MEAN CORPUSCULAR VOLUME 85.3 fL (81.0-99.0); MEAN PLATELET VOLUME 9.3 fl (7.4-10.4); PLATELET 301 x1000/uL (130-400); RED BLOOD CELL COUNT 2.97 mill/uL (4.2-5.4); RED CELL DISTRIBUTION WIDTH 16.9 % (11.6-14.6); WHITE BLOOD COUNT 21.9 x1000/uL (4.5-11.0)
[2024-07-21 06:00] LABS: CHLORIDE 108 mEq/L (98-107); POTASSIUM 3.7 mEq/L (3.5-5.1); SODIUM 138 mEq/L (136-145)
[2024-07-21 06:01] LABS: CALCIUM 9.4 mg/dL (8.7-10.4); CARBON DIOXIDE 22 mEq/L (21-32)
[2024-07-21 06:05] LABS: CREATININE 2.6 mg/dL (0.6-1.0); GLUCOSE 105 mg/dL (70-105)
[2024-07-21 06:06] LABS: UREA NITROGEN BLOOD 68 mg/dL (9-23)
[2024-07-21 06:07] LABS: DIFFERENTIAL COMMENT 1
[2024-07-21 06:08] LABS: PHOSPHORUS 3.8 mg/dL (2.5-4.9)
[2024-07-21] MEDS: METHYLPREDNISOLONE SOD SUCC 125MG/2ML (ACT-O-VIAL) IV SCH (10:07)
[2024-07-21] MEDS: MAGNESIUM 2 G PREMIX 50 ML IV NR (11:58)
[2024-07-21] MEDS: SODIUM BICARBONATE 50 MEQ in SODIUM CHLORIDE 0.45% 1,000 ML IV SCH (11:58)
[2024-07-21 12:34] LABS: ANISOCYTOSIS 1+; PLATELET ESTIMATE NORMAL
[2024-07-22] VITALS: BP 158/68; PULSE 120; RESP 22; TEMP 36.44736; O2SAT 99
[2024-07-22 04:00] VITALS: BP 128/53; PULSE 89; RESP 18; TEMP 36.44736; O2SAT 100
[2024-07-22 07:18] LABS: CARBON DIOXIDE 23 mEq/L (21-32); CHLORIDE 107 mEq/L (98-107); POTASSIUM 4.2 mEq/L (3.5-5.1); SODIUM 138 mEq/L (136-145)
[2024-07-22 07:19] LABS: CALCIUM 9.7 mg/dL (8.7-10.4)
[2024-07-22 07:24] LABS: CREATININE 2.6 mg/dL (0.6-1.0); GLUCOSE 98 mg/dL (70-105); UREA NITROGEN BLOOD 69 mg/dL (9-23)
[2024-07-22 07:26] LABS: PHOSPHORUS 4.5 mg/dL (2.5-4.9)
[2024-07-22 07:31] LABS: BASOPHILS % 0.1 % (0.0-2.0); EOSINOPHILS % 0.1 % (0.0-5.0); HEMATOCRIT. 24.1 % (36.0-48.0); HEMOGLOBIN. 7.8 g/dL (12.0-16.0); LYMPHOCYTES % 14.2 % (20.0-50.0); MEAN CORPUSCULAR HEMOGLOBIN 27.5 pg (28.0-32.0); MEAN CORPUSCULAR HGB CONC 32.4 g/dL (31.0-37.0); MEAN CORPUSCULAR VOLUME 84.8 fL (81.0-99.0); MEAN PLATELET VOLUME 9.3 fl (7.4-10.4); MONOCYTES % 10.7 % (2.0-8.0); NEUTROPHILS % 74.9 % (40.0-76.0); PLATELET 259 x1000/uL (130-400); RED BLOOD CELL COUNT 2.84 mill/uL (4.2-5.4); WHITE BLOOD COUNT 20.2 x1000/uL (4.5-11.0)
[2024-07-22 08:00] VITALS: BP 158/41; PULSE 82; RESP 20; TEMP 36.50292; O2SAT 100
[2024-07-22 16:00] VITALS: BP 198/74; PULSE 112; RESP 20; TEMP 36.44736
[2024-07-22 20:00] VITALS: BP 132/69; PULSE 113; RESP 22; TEMP 37.11408; O2SAT 98
[2024-07-23] VITALS (7 sets, daily range): BP systolic 137–173; BP diastolic 47–75; PULSE 63–114; RESP 18–22; TEMP 36.3918–37.11408; O2SAT 95–100
[2024-07-23 07:09] LABS: CARBON DIOXIDE 23 mEq/L (21-32); CHLORIDE 108 mEq/L (98-107); SODIUM 140 mEq/L (136-145)
[2024-07-23 07:10] LABS: CALCIUM 9.8 mg/dL (8.7-10.4)
[2024-07-23 07:11] LABS: BASOPHILS % 0.1 % (0.0-2.0); HEMATOCRIT. 23.2 % (36.0-48.0); HEMOGLOBIN. 7.4 g/dL (12.0-16.0); LYMPHOCYTES % 10.8 % (20.0-50.0); MEAN CORPUSCULAR HEMOGLOBIN 27.4 pg (28.0-32.0); MEAN CORPUSCULAR HGB CONC 31.7 g/dL (31.0-37.0); MEAN CORPUSCULAR VOLUME 86.5 fL (81.0-99.0); MONOCYTES % 9.1 % (2.0-8.0); PLATELET 284 x1000/uL (130-400); RED BLOOD CELL COUNT 2.69 mill/uL (4.2-5.4); RED CELL DISTRIBUTION WIDTH 17.5 % (11.6-14.6); WHITE BLOOD COUNT 21.3 x1000/uL (4.5-11.0)
[2024-07-23 07:13] LABS: CREATININE 2.7 mg/dL (0.6-1.0)
[2024-07-23 07:14] LABS: GLUCOSE 141 mg/dL (70-105)
[2024-07-23 07:15] LABS: UREA NITROGEN BLOOD 71 mg/dL (9-23)
[2024-07-23 07:17] LABS: PHOSPHORUS 3.8 mg/dL (2.5-4.9)
[2024-07-23] MEDS: NIFEDIPINE XL 60MG TAB PO SCH (08:28)
[2024-07-23] MEDS: PREDNISONE 20MG TABLET PO SCH (08:29)
== END 2024-07-23 18:03 | disposition home health service (06) | DRG 720 ==
LOC: ER 00:44 → MICUSO 02:14 → EDBEDREQTM 02:18 → EDBEDREQ 02:18 → ER 04:00 → 8WST 07-21 04:44
PROVIDERS: ADMIT Internal Medicine; ATTEND Internal Medicine
PROC: 5A1955Z Respiratory Ventilation, Greater than 96 Consecutive Hours (ICD-10-PCS; principal; 2024-07-13)
PROC: 0BH17EZ Insertion of Endotracheal Airway into Trachea, Via Natural or Artificial Opening (ICD-10-PCS; 2024-07-13)
PROC: 5A09357 Assistance with Respiratory Ventilation, Less than 24 Consecutive Hours, Continuous Positive Airway Pressure (ICD-10-PCS; 2024-07-13)
PROC: 02HV33Z Insertion of Infusion Device into Superior Vena Cava, Percutaneous Approach (ICD-10-PCS; 2024-07-17)
PROC: B548ZZA Ultrasonography of Superior Vena Cava, Guidance (ICD-10-PCS; 2024-07-17)
DX: A41.9 Sepsis, unspecified organism (principal); J96.01 Acute respiratory failure with hypoxia; N17.0 Acute kidney failure with tubular necrosis; J69.0 Pneumonitis due to inhalation of food and vomit; G93.41 Metabolic encephalopathy; I21.A1 Myocardial infarction type 2; E87.20 Acidosis, unspecified; D64.9 Anemia, unspecified; S30.0XXA Contusion of lower back and pelvis, initial encounter; J96.22 Acute and chronic respiratory failure with hypercapnia; J44.1 Chronic obstructive pulmonary disease with (acute) exacerbation; J44.0 Chronic obstructive pulmonary disease with (acute) lower respiratory infection; F03.90 Unspecified dementia, unspecified severity, without behavioral disturbance, psychotic disturbance, mood disturbance, and anxiety; N18.30 Chronic kidney disease, stage 3 unspecified; F19.10 Other psychoactive substance abuse, uncomplicated; I12.9 Hypertensive chronic kidney disease with stage 1 through stage 4 chronic kidney disease, or unspecified chronic kidney disease; E78.5 Hyperlipidemia, unspecified; E87.5 Hyperkalemia; Z20.822 Contact with and (suspected) exposure to COVID-19; E83.42 Hypomagnesemia; E87.6 Hypokalemia; R33.9 Retention of urine, unspecified; R65.20 Severe sepsis without septic shock; R73.9 Hyperglycemia, unspecified; Z82.49 Family history of ischemic heart disease and other diseases of the circulatory system; Z88.3 Allergy status to other anti-infective agents; Z88.2 Allergy status to sulfonamides; Z88.1 Allergy status to other antibiotic agents; X58.XXXA Exposure to other specified factors, initial encounter; Y93.89 Activity, other specified; Y92.89 Other specified places as the place of occurrence of the external cause; Y99.8 Other external cause status
CPT/HCPCS: 36415; 36573; 36600; 71045; 76770; 80048; 80076; 80305; 80320; 81003; 82040; 82270; 82375; 82550; 82805; 82962; 83036; 83605; 83615; 83735; 83880; 84100; 84132; 84134; 84145; 84478; 84484; 85014; 85018; 85025; 85027; 86850; 86900; 86920; 87070; 87426; 87804; 93005; 94003; 94640; 99291; A6261; C1725; J0360; J0692; J1815; J1956; J2250; J2470; J2704; J2919; J2920; J3475; J3480; J3490; J7050; J7070; J7512; J7626; P9016; Q9957; G0480

== ENCOUNTER 2024-09-28 23:27 | Inpatient (IN) | payer MEDICARE, MEDICAID ==
[~2024-09-28] VITALS: Ht 160 cm; Wt 26013.8 kg
[~2024-09-28 23:27] MED LIST changes: +AMLO10TA80 PO; +ASPI-1160 PO; -ASPI-986 MT; +CHLO25TA2 PO; +CLON0.1T PO; -CLON0.2T MT; +CLON0.2T PO; -DILT120C88 MT; +DILT90TA2 PO; +FERR-63 PO; +FLUO-336 PO; +HYDR100T11 PO; +NIFE-32 PO; +NITR100C MT; +QUET50TA PO
[2024-09-28 23:30] VITALS: RESP 24
[2024-09-28] MEDS: METHYLPREDNISOLONE SOD SUCC 125MG/2ML (ACT-O-VIAL) IV STA (23:39)
[2024-09-28 23:57] LABS: BASOPHILS % 0.3 % (0.0-2.0); EOSINOPHILS % 1.7 % (0.0-5.0); HEMATOCRIT. 28.1 % (36.0-48.0); HEMOGLOBIN. 8.9 g/dL (12.0-16.0); LYMPHOCYTES % 31.4 % (20.0-50.0); MEAN CORPUSCULAR HEMOGLOBIN 29.9 pg (28.0-32.0); MEAN CORPUSCULAR HGB CONC 31.5 g/dL (31.0-37.0); MEAN CORPUSCULAR VOLUME 94.7 fL (81.0-99.0); MEAN PLATELET VOLUME 8.3 fl (7.4-10.4); MONOCYTES % 6.2 % (2.0-8.0); NEUTROPHILS % 60.4 % (40.0-76.0); PLATELET 348 x1000/uL (130-400); RED BLOOD CELL COUNT 2.97 mill/uL (4.2-5.4); RED CELL DISTRIBUTION WIDTH 20.4 % (11.6-14.6); WHITE BLOOD COUNT 12.5 x1000/uL (4.5-11.0)
[2024-09-29] VITALS (68 sets, daily range): BP systolic 66–192; BP diastolic 39–137; PULSE 60–97; RESP 12–37; TEMP 36.114–36.78072; O2SAT 98–100
[2024-09-29] MEDS ORDERED: ALBUTEROL (0.083%) 2.5MG/3ML NEB HHN SCH
[2024-09-29 00:03] LABS: CHLORIDE 119 mEq/L (98-107); POTASSIUM 3.6 mEq/L (3.5-5.1); SODIUM 147 mEq/L (136-145)
[2024-09-29 00:04] LABS: CARBON DIOXIDE 19 mEq/L (21-32)
[2024-09-29 00:09] LABS: CREATININE 2.6 mg/dL (0.6-1.0); GLUCOSE 132 mg/dL (70-105)
[2024-09-29 00:11] LABS: TROPONIN I HIGH SENSITIVITY 8 ng/L (3.0-34); UREA NITROGEN BLOOD 38 mg/dL (9-23)
[2024-09-29] MEDS: ONDANSETRON HCL 4MG/2ML INJ IV STA (00:12)
[2024-09-29] MEDS: MAGNESIUM 2 G PREMIX 50 ML IV ONE (00:12)
[2024-09-29] MEDS: HYDROCODONE/ACETAMINOPHEN 5/325MG TABLET PO ONE (01:35)
[2024-09-29] MEDS: CEFTRIAXONE 1GM/50ML 50 ML IV NR (03:00)
[2024-09-29] MEDS ORDERED: ACETAMINOPHEN 325MG TABLET PO PRN (05:45)
[2024-09-29] MEDS ORDERED: GUAIFENESIN 200MG/10ML SUGAR FREE UDC PO PRN (05:45)
[2024-09-29] MEDS ORDERED: HYDRALAZINE 20MG/ML VIAL IV PRN (05:45)
[2024-09-29] MEDS ORDERED: MAGNESIUM/ALUMINUM HYDROXIDE/SIMETHICONE 30ML UDC PO PRN (05:45)
[2024-09-29] MEDS ORDERED: MELATONIN 3MG TABLET PO PRN (05:45)
[2024-09-29] MEDS ORDERED: PIPERACILLIN/TAZO 3.375G/50ML 50 ML IV NR ×2 (06:15→09:00)
[2024-09-29 06:32] LABS: CARBON DIOXIDE 20 mEq/L (21-32); CHLORIDE 113 mEq/L (98-107); POTASSIUM 4.2 mEq/L (3.5-5.1); SODIUM 145 mEq/L (136-145)
[2024-09-29 06:33] LABS: CALCIUM 9.9 mg/dL (8.7-10.4)
[2024-09-29 06:38] LABS: CREATININE 2.4 mg/dL (0.6-1.0); GLUCOSE 127 mg/dL (70-105); TRIGLYCERIDE 63 mg/dL (0-150); UREA NITROGEN BLOOD 36 mg/dL (9-23)
[2024-09-29 06:39] LABS: LDL CHOLESTEROL 85 mg/dL (5-100)
[2024-09-29 06:40] LABS: CHOLESTEROL 175 mg/dL (<200); HDL CHOLESTEROL 65 mg/dL (>65); PHOSPHORUS 3.4 mg/dL (2.5-4.9)
[2024-09-29 06:42] LABS: HEMATOCRIT 28.4 % (36.0-48.0); MEAN CORPUSCULAR HEMOGLOBIN 29.5 pg (28.0-32.0); MEAN CORPUSCULAR HGB CONC 31.8 g/dL (31.0-37.0); MEAN CORPUSCULAR VOLUME 92.9 fL (81.0-99.0); PLATELET 380 x1000/uL (130-400); RED BLOOD CELL COUNT 3.06 mill/uL (4.2-5.4); WHITE BLOOD COUNT 10.9 x1000/uL (4.5-11.0)
[2024-09-29 07:00] LABS: IRON 27 ug/dL (50-170)
[2024-09-29 07:03] LABS: TOTAL IRON BINDING CAPACITY 388 ug/dl (250-425)
[2024-09-29 07:06] LABS: FERRITIN 44 ng/mL (10-291)
[2024-09-29 07:07] LABS: FOLIC ACID (FOLATE) SERUM > 20.00 ng/mL (>5.38); VITAMIN B12 SERUM 564 pg/mL (211-911)
[2024-09-29] MEDS: LOSARTAN 25 MG TABLET PO SCH (07:17)
[2024-09-29] MEDS: NIFEDIPINE 10MG CAPSULE PO SCH (07:17)
[2024-09-29] MEDS: IPRATROPIUM/ALBUTEROL 0.5-3(2.5)MG/3ML NEB HHN SCH (08:00)
[2024-09-29] MEDS ORDERED: NOREPINEPHRINE 8MG/250ML PMX 250 ML IV ONE (09:00)
[2024-09-29] MEDS ORDERED: NOREPINEPHRINE 8MG/250ML PMX 250 ML IV PRN (09:00)
[2024-09-29] MEDS ORDERED: SODIUM CHLORIDE 0.9% 1,000 ML IV ONE (09:00)
[2024-09-29] MEDS: NOREPINEPHRINE 8MG/250ML PMX 250 ML IV PRN (09:13)
[2024-09-29 09:14] LABS: BG BASE EXCESS -18.7 mmol/L (-2.0-3.0); BG CARBOXYHEMOGLOBIN 1.3 % (0.5-1.5); BG FRACTION INSPIRED OXYGEN 100; BG HCO3 ACT 10.3 mmol/L (21.0-28.0); BG METHEMOGLOBIN 0.3 % (0.5-1.5); BG OXYGEN SATURATION 66.5 % (94.0-98.0); BG OXYHEMOGLOBIN 65.4 % (94.0-98.0); BG PCO2 37.9 mmHg (32.0-45.0); BG PO2 50.8 mmHg (83.0-108.0); BG SAMPLE SITE RIGHT BRACHIAL; BG TOTAL HEMOGLOBIN 7.1 g/dL (12.0-16.0)
[2024-09-29 10:17] LABS: ALANINE AMINOTRANSFERASE 10 IU/L (10-49); ALBUMIN 4.2 g/dL (3.2-4.8); ASPARTATE AMINOTRANSFERASE 21 IU/L (<34)
[2024-09-29 10:18] LABS: BILIRUBIN TOTAL 0.2 mg/dL (0.1-1.0); PROTEIN TOTAL 7.6 g/dL (6.0-8.3)
[2024-09-29] MEDS: SODIUM BICARBONATE 8.4% 50MEQ/50ML SYR IV NR (10:22)
[2024-09-29] MEDS: LACTATED RINGERS 1,000 ML IV ONE (10:22)
[2024-09-29 10:23] LABS: LACTIC ACID 8.4 mmol/L (0.4-2.0)
[2024-09-29] MEDS: PANTOPRAZOLE 40MG DR TABLET PO SCH (10:23)
[2024-09-29] MEDS: DOXYCYCLINE HYCLATE 100MG CAPSULE PO SCH (10:23)
[2024-09-29] MEDS: FERROUS SULFATE 325MG TABLET PO SCH (10:23)
[2024-09-29] MEDS: METHYLPREDNISOLONE SOD SUCC 125MG/2ML (ACT-O-VIAL) IV SCH (10:23)
[2024-09-29] MEDS: MORPHINE SULFATE 2 MG/ML INJ (NOT FOR IM USE) IV NR (10:24)
[2024-09-29 10:25] LABS: BILIRUBIN DIRECT < 0.1 mg/dL (<=3.0)
[2024-09-29] MEDS ORDERED: LIDOCAINE HCL 1% 10 MG/ML 10ML VIAL ONE (11:05)
[2024-09-29] MEDS ORDERED: VASOPRESSIN 20 UNIT in SODIUM CHLORIDE 0.9% 99 ML IV PRN (11:30)
[2024-09-29 12:12] LABS: BG CARBOXYHEMOGLOBIN 0.6 % (0.5-1.5); BG FRACTION INSPIRED OXYGEN 100; BG HCO3 ACT 13.4 mmol/L (21.0-28.0); BG METHEMOGLOBIN 0.3 % (0.5-1.5); BG OXYHEMOGLOBIN 96.1 % (94.0-98.0); BG PCO2 32.7 mmHg (32.0-45.0); BG PH 7.231 (7.350-7.450); BG PO2 105.8 mmHg (83.0-108.0); BG SAMPLE SITE LEFT BRACHIAL; BG TOTAL HEMOGLOBIN 7.8 g/dL (12.0-16.0); BG VENT MODE MASK - BIPAP
[2024-09-29] MEDS: PIPERACILLIN/TAZO 3.375G/100ML 100 ML IV NR (13:18)
[2024-09-29] MEDS ORDERED: CLONIDINE 0.1MG TABLET PO SCH (14:00)
[2024-09-29 16:20] LABS: DIFFERENTIAL COMMENT 1; HEMATOCRIT. 24.5 % (36.0-48.0); HEMOGLOBIN. 7.6 g/dL (12.0-16.0); MEAN CORPUSCULAR HGB CONC 31.2 g/dL (31.0-37.0); MEAN CORPUSCULAR VOLUME 93.1 fL (81.0-99.0); PLATELET 364 x1000/uL (130-400); RED BLOOD CELL COUNT 2.63 mill/uL (4.2-5.4); RED CELL DISTRIBUTION WIDTH 20.3 % (11.6-14.6); WHITE BLOOD COUNT 21.1 x1000/uL (4.5-11.0)
[2024-09-29] MEDS: HYDRALAZINE 20MG/ML VIAL IV PRN (18:52)
[2024-09-29] MEDS: QUETIAPINE FUMARATE 200MG TABLET PO SCH (20:52)
[2024-09-29] MEDS: PIPERACILLIN/TAZO 3.375G/100ML 100 ML IV SCH (20:52)
[2024-09-29] MEDS ORDERED: PIPERACILLIN/TAZO 3.375G/100ML 100 ML IV SCH (21:00)
[2024-09-29 21:37] LABS: ANISOCYTOSIS 2+; PLATELET ESTIMATE NORMAL
[2024-09-29] MEDS ORDERED: NALOXONE HCL 0.4MG/ML VIAL IV PRN (22:00)
[2024-09-29] MEDS: HYDROCODONE/ACETAMINOPHEN 5/325MG TABLET PO PRN (22:22)
[2024-09-29 22:31] LABS: HEPATITIS B SURFACE ANTIGEN NEGATIVE (Negative)
[2024-09-29 22:52] LABS: HEPATITIS C AB REACTIVE (Pos) (Negative)
[2024-09-30] VITALS (67 sets, daily range): BP systolic 116–216; BP diastolic 49–124; PULSE 65–115; RESP 11–28; TEMP 36.55848–36.9474; O2SAT 98–100
[2024-09-30 04:37] LABS: POTASSIUM 4.5 mEq/L (3.5-5.1)
[2024-09-30 05:15] LABS: CREATININE 3.2 mg/dL (0.6-1.0)
[2024-09-30 07:38] LABS: HEMATOCRIT 23.5 % (36.0-48.0); HEMOGLOBIN 7.6 g/dL (12.0-16.0); MEAN CORPUSCULAR HEMOGLOBIN 29.4 pg (28.0-32.0); MEAN CORPUSCULAR HGB CONC 32.4 g/dL (31.0-37.0); MEAN CORPUSCULAR VOLUME 90.7 fL (81.0-99.0); PLATELET 258 x1000/uL (130-400); RED BLOOD CELL COUNT 2.59 mill/uL (4.2-5.4); RED CELL DISTRIBUTION WIDTH 19.6 % (11.6-14.6); WHITE BLOOD COUNT 17.3 x1000/uL (4.5-11.0)
[2024-09-30] MEDS ORDERED: PNEUMOCOCCAL 20-VAL CONJ-DIP CRM 0.5ML IM ONE (10:00)
[2024-09-30] MEDS ORDERED: INFLUENZA VACCINE 05/PF 0.5 ML SYRINGE IM ONE (10:00)
[2024-09-30 10:04] LABS: CREATINE KINASE 94 IU/L (34-145)
[2024-09-30] MEDS: AMMONIUM LACTATE 12% LOTION 240ML TOP SCH (13:30)
[2024-09-30] MEDS: FERROUS SULFATE 325MG TABLET PO SCH (17:00)
[2024-09-30] MEDS: LOSARTAN 50 MG TABLET PO SCH (17:57)
[2024-09-30] MEDS: ASCORBIC ACID 250 MG TABLET PO SCH (17:57)
[2024-09-30] MEDS: METHYLPREDNISOLONE SOD SUCC 40MG/ML (ACT-O-VIAL) IV SCH (17:57)
[2024-09-30] MEDS: DILTIAZEM HCL 90MG TABLET PO SCH (18:58)
[2024-09-30] MEDS: HYDRALAZINE 20MG/ML VIAL IV NR (20:48)
[2024-09-30] MEDS ORDERED: MEDICATION NOT ON FORMULARY EA (Quetiapine Fumarate (Seroquel) 200 MG) PO SCH (21:00)
[2024-09-30] MEDS ORDERED: QUETIAPINE FUMARATE 200MG TABLET PO SCH (21:00)
[2024-09-30] MEDS: LABETALOL HCL 200MG TABLET PO SCH (21:21)
[2024-09-30] MEDS: HYDRALAZINE HCL 100MG TABLET PO SCH (21:21)
[2024-09-30] MEDS: CLONIDINE 0.2MG TABLET PO SCH (21:22)
[2024-10-01] VITALS (9 sets, daily range): BP systolic 103–196; BP diastolic 37–85; PULSE 68–98; RESP 16–19; TEMP 36.28068–37.05852; O2SAT 4–100
[2024-10-01 07:19] LABS: CHLORIDE 107 mEq/L (98-107); POTASSIUM 4.6 mEq/L (3.5-5.1); SODIUM 139 mEq/L (136-145)
[2024-10-01 07:21] LABS: CARBON DIOXIDE 22 mEq/L (21-32)
[2024-10-01 07:22] LABS: CALCIUM 9.2 mg/dL (8.7-10.4)
[2024-10-01 07:27] LABS: GLUCOSE 97 mg/dL (70-105)
[2024-10-01 07:28] LABS: ALANINE AMINOTRANSFERASE 30 IU/L (10-49); UREA NITROGEN BLOOD 62 mg/dL (9-23)
[2024-10-01 07:29] LABS: ALBUMIN 3.3 g/dL (3.2-4.8); ASPARTATE AMINOTRANSFERASE 27 IU/L (<34)
[2024-10-01 07:30] LABS: BILIRUBIN TOTAL 0.2 mg/dL (0.1-1.0); PHOSPHORUS 4.8 mg/dL (2.5-4.9); PROTEIN TOTAL 5.9 g/dL (6.0-8.3)
[2024-10-01 08:03] LABS: CREATININE 4.5 mg/dL (0.6-1.0)
[2024-10-01 08:55] LABS: HEMATOCRIT 22.4 % (36.0-48.0); HEMOGLOBIN 7.2 g/dL (12.0-16.0); MEAN CORPUSCULAR HEMOGLOBIN 29.3 pg (28.0-32.0); MEAN CORPUSCULAR HGB CONC 32.2 g/dL (31.0-37.0); PLATELET 224 x1000/uL (130-400); RED BLOOD CELL COUNT 2.46 mill/uL (4.2-5.4); RED CELL DISTRIBUTION WIDTH 19.6 % (11.6-14.6); WHITE BLOOD COUNT 14.6 x1000/uL (4.5-11.0)
[2024-10-01] MEDS: FLUOXETINE HCL 10 MG CAPSULE PO SCH (09:00)
[2024-10-01 09:09] LABS: COMPLEMENT C3 116 mg/dL (82-167); COMPLEMENT C4 37 mg/dL (12-38)
[2024-10-01] MEDS: DOCUSATE SODIUM 100MG CAPSULE PO PRN (09:39)
[2024-10-01] MEDS: NIFEDIPINE XL 60MG TAB PO SCH (09:39)
[2024-10-01 11:55] LABS: CLARITY URINE CLEAR (CLEAR); COLOR URINE YELLOW (YELLOW); GLUCOSE URINE NEGATIVE (NEGATIVE); KETONES URINE NEGATIVE (NEGATIVE); LEUKOCYTE ESTERASE URINE TRACE (NEGATIVE); NITRITE URINE NEGATIVE (NEGATIVE); OCCULT BLOOD URINE 1+ (NEGATIVE); PROTEIN URINE 3+ (NEGATIVE); SPECIFIC GRAVITY URINE 1.013 (1.005-1.030); UROBILINOGEN URINE 0.2 E.U./dL (0.2-1.0)
[2024-10-01 12:28] LABS: BACTERIA URINE TRACE; SQUAMOUS EPITHELIAL CELL URINE RARE /lpf (RARE/1+)
[2024-10-01 12:30] LABS: WBC URINE 0-2 /hpf (0-2)
[2024-10-01 13:06] LABS: ANTI-NUCLEAR ANTIBODIES DIRECT Negative (Negative)
[2024-10-01] MEDS: LACTULOSE 20G/30ML UDC PO NR (13:37)
[2024-10-01] MEDS ORDERED: HALOPERIDOL LACTATE 5MG/ML VIAL IM NR (16:00)
[2024-10-01] MEDS: SODIUM CHLORIDE 0.45% 1,000 ML IV SCH (18:17)
[2024-10-01 20:03] LABS: *AMPHETAMINES SCREEN URINE NEGATIVE (NEGATIVE); *BARBITURATES SCREEN URINE NEGATIVE (NEGATIVE); *BENZODIAZEPINES SCREEN URINE NEGATIVE (NEGATIVE); *COCAINE SCREEN URINE PRESUMPTIVE POSITIVE (NEGATIVE); CANNABINOID URINE SCREEN NEGATIVE (NEGATIVE); ECSTASY MDMA SCREEN URINE NEGATIVE (NEGATIVE); METHADONE URINE SCREEN NEGATIVE (NEGATIVE); OPIATES URINE SCREEN PRESUMPTIVE POSITIVE (NEGATIVE); PHENCYCLIDINE URINE SCREEN NEGATIVE (NEGATIVE)
[2024-10-01] MEDS: IPRATROPIUM BROMIDE (0.02%) 0.5MG/2.5ML NEB HHN STA (20:34)
[2024-10-01] MEDS: SENNOSIDES/DOCUSATE SOD 8.6/50MG TABLET PO SCH (21:00)
[2024-10-01] MEDS: PIPERACILLIN/TAZO 3.375G/50ML 50 ML IV SCH (21:37)
[2024-10-01 22:12] LABS: CREATINE KINASE 24 IU/L (34-145)
[2024-10-02] VITALS (10 sets, daily range): BP systolic 100–213; BP diastolic 40–92; PULSE 70–125; RESP 16–20; TEMP 36.33624–37.33632; O2SAT 95–100
[2024-10-02 07:48] LABS: POTASSIUM 4.9 mEq/L (3.5-5.1)
[2024-10-02 07:50] LABS: CALCIUM 9.4 mg/dL (8.7-10.4)
[2024-10-02 08:07] LABS: CREATININE 5.6 mg/dL (0.6-1.0)
[2024-10-02 08:40] LABS: DIFFERENTIAL COMMENT 0; LYMPHOCYTES % 7.8 % (20.0-50.0); MEAN CORPUSCULAR HEMOGLOBIN 28.5 pg (28.0-32.0); MEAN CORPUSCULAR HGB CONC 31.4 g/dL (31.0-37.0); MEAN CORPUSCULAR VOLUME 90.6 fL (81.0-99.0); MEAN PLATELET VOLUME 8.8 fl (7.4-10.4); MONOCYTES % 7.1 % (2.0-8.0); NEUTROPHILS % 85.1 % (40.0-76.0); PLATELET 205 x1000/uL (130-400); RED CELL DISTRIBUTION WIDTH 19.2 % (11.6-14.6); WHITE BLOOD COUNT 11.9 x1000/uL (4.5-11.0)
[2024-10-02 09:48] LABS: HEMATOCRIT. 20.8 % (36.0-48.0); HEMOGLOBIN. 6.5 g/dL (12.0-16.0)
[2024-10-02] MEDS: DIPHENHYDRAMINE 50MG/ML VIAL IV NR (19:58)
[2024-10-02] MEDS: CLONIDINE 0.3MG TABLET PO SCH (21:50)
[2024-10-02] MEDS: QUETIAPINE FUMARATE 200MG TABLET PO SCH (21:50)
[2024-10-03] VITALS (12 sets, daily range): BP systolic 90–191; BP diastolic 40–78; PULSE 52–120; RESP 18–20; TEMP 36.3918–37.05852; O2SAT 94–100
[2024-10-03 07:37] LABS: POTASSIUM 4.8 mEq/L (3.5-5.1)
[2024-10-03 07:38] LABS: CALCIUM 8.8 mg/dL (8.7-10.4)
[2024-10-03 07:40] LABS: INR 0.9; PROTHROMBIN TIME 10.6 sec (9.6-11.0)
[2024-10-03 07:51] LABS: CREATININE 6.2 mg/dL (0.6-1.0)
[2024-10-03] MEDS ORDERED: LIDOCAINE HCL 1% 10 MG/ML 10ML VIAL ONE (08:38)
[2024-10-03 08:57] LABS: EOSINOPHILS % 0.2 % (0.0-5.0); HEMATOCRIT. 22.7 % (36.0-48.0); HEMOGLOBIN. 7.4 g/dL (12.0-16.0); LYMPHOCYTES % 21.1 % (20.0-50.0); MEAN CORPUSCULAR HEMOGLOBIN 29.3 pg (28.0-32.0); MEAN CORPUSCULAR HGB CONC 32.4 g/dL (31.0-37.0); MEAN CORPUSCULAR VOLUME 90.3 fL (81.0-99.0); MEAN PLATELET VOLUME 8.9 fl (7.4-10.4); MONOCYTES % 10.7 % (2.0-8.0); PLATELET 208 x1000/uL (130-400); RED BLOOD CELL COUNT 2.51 mill/uL (4.2-5.4); RED CELL DISTRIBUTION WIDTH 17.8 % (11.6-14.6); WHITE BLOOD COUNT 14.4 x1000/uL (4.5-11.0)
[2024-10-03] MEDS: FLUOXETINE HCL 10 MG CAPSULE PO SCH (09:00)
[2024-10-03 10:10] LABS: HEPATITIS B SURFACE ANTIGEN NEGATIVE (Negative)
[2024-10-03 10:31] LABS: HEPATITIS A AB IGM NEGATIVE (Negative)
[2024-10-03 10:32] LABS: HEPATITIS B CORE AB IGM NEGATIVE (Negative); HEPATITIS C AB REACTIVE (Pos) (Negative)
[2024-10-03] MEDS: SODIUM CHLORIDE 0.9% 1,000 ML IV SCH (10:52)
[2024-10-03] MEDS: SUCRALFATE 1G TABLET PO SCH (14:54)
[2024-10-03] MEDS: CLONIDINE 0.1MG TABLET PO SCH (21:43)
[2024-10-03 22:21] LABS: HEMATOCRIT 25.4 % (36.0-48.0); HEMOGLOBIN 8.3 g/dL (12.0-16.0)
[2024-10-04] VITALS (8 sets, daily range): BP systolic 144–199; BP diastolic 64–88; PULSE 90–125; RESP 18–20; TEMP 36.05844–37.00296; O2SAT 94–99
[2024-10-04] MEDS: ONDANSETRON HCL 4MG/2ML INJ IV PRN (01:02)
[2024-10-04 09:19] LABS: BASOPHILS % 0.1 % (0.0-2.0); EOSINOPHILS % 0.6 % (0.0-5.0); HEMOGLOBIN. 7.9 g/dL (12.0-16.0); LYMPHOCYTES % 20.8 % (20.0-50.0); MEAN CORPUSCULAR HGB CONC 31.7 g/dL (31.0-37.0); MEAN CORPUSCULAR VOLUME 91.7 fL (81.0-99.0); MEAN PLATELET VOLUME 8.7 fl (7.4-10.4); MONOCYTES % 9.3 % (2.0-8.0); NEUTROPHILS % 69.2 % (40.0-76.0); PLATELET 207 x1000/uL (130-400); RED BLOOD CELL COUNT 2.72 mill/uL (4.2-5.4); RED CELL DISTRIBUTION WIDTH 18.1 % (11.6-14.6); WHITE BLOOD COUNT 15.1 x1000/uL (4.5-11.0)
[2024-10-04 09:33] LABS: POTASSIUM 4.3 mEq/L (3.5-5.1)
[2024-10-04 09:35] LABS: CALCIUM 8.9 mg/dL (8.7-10.4)
[2024-10-04 10:00] LABS: CREATININE 5.4 mg/dL (0.6-1.0)
[2024-10-04] MEDS: IPRATROPIUM/ALBUTEROL 0.5-3(2.5)MG/3ML NEB HHN PRN (20:50)
[2024-10-05] VITALS (14 sets, daily range): BP systolic 137–216; BP diastolic 58–89; PULSE 11–115; RESP 17–20; TEMP 36.33624–36.9474; O2SAT 98–100
[2024-10-05] MEDS: HYDROCODONE/ACETAMINOPHEN 5/325MG TABLET PO PRN ×2 (03:05→18:12)
[2024-10-05] MEDS ORDERED: NALOXONE HCL 0.4MG/ML VIAL IV PRN (10:45)
[2024-10-05 10:48] LABS: HEMATOCRIT 24.8 % (36.0-48.0); HEMOGLOBIN 7.9 g/dL (12.0-16.0); MEAN CORPUSCULAR HEMOGLOBIN 29.4 pg (28.0-32.0); MEAN CORPUSCULAR HGB CONC 31.8 g/dL (31.0-37.0); MEAN CORPUSCULAR VOLUME 92.2 fL (81.0-99.0); PLATELET 221 x1000/uL (130-400); RED BLOOD CELL COUNT 2.69 mill/uL (4.2-5.4); RED CELL DISTRIBUTION WIDTH 18.1 % (11.6-14.6); WHITE BLOOD COUNT 15.7 x1000/uL (4.5-11.0)
[2024-10-05 10:55] LABS: CALCIUM 9.5 mg/dL (8.7-10.4)
[2024-10-05 11:19] LABS: CREATININE 5.4 mg/dL (0.6-1.0)
[2024-10-05] MEDS: MORPHINE SULFATE 2 MG/ML INJ (NOT FOR IM USE) IV SCH (11:35)
[2024-10-05] MEDS: CLONIDINE 0.3MG TABLET PO SCH (13:06)
[2024-10-05] MEDS: LOSARTAN 50 MG TABLET PO SCH (16:01)
[2024-10-06] VITALS (13 sets, daily range): BP systolic 125–171; BP diastolic 60–90; PULSE 64–103; RESP 16–20; TEMP 36.114–37.05852; O2SAT 95–100
[2024-10-06 06:46] LABS: DIFFERENTIAL COMMENT 0; EOSINOPHILS % 2.6 % (0.0-5.0); HEMATOCRIT. 21.4 % (36.0-48.0); LYMPHOCYTES % 26.4 % (20.0-50.0); MEAN CORPUSCULAR HEMOGLOBIN 28.7 pg (28.0-32.0); MEAN CORPUSCULAR VOLUME 89.8 fL (81.0-99.0); MEAN PLATELET VOLUME 8.9 fl (7.4-10.4); PLATELET 206 x1000/uL (130-400); RED BLOOD CELL COUNT 2.38 mill/uL (4.2-5.4); RED CELL DISTRIBUTION WIDTH 17.1 % (11.6-14.6); WHITE BLOOD COUNT 13.6 x1000/uL (4.5-11.0)
[2024-10-06 06:51] LABS: INR 0.9; PROTHROMBIN TIME 10.6 sec (9.6-11.0)
[2024-10-06 07:05] LABS: CHLORIDE 104 mEq/L (98-107); POTASSIUM 3.9 mEq/L (3.5-5.1); SODIUM 138 mEq/L (136-145)
[2024-10-06 07:08] LABS: CALCIUM 9.3 mg/dL (8.7-10.4); CARBON DIOXIDE 24 mEq/L (21-32)
[2024-10-06 07:13] LABS: GLUCOSE 91 mg/dL (70-105); UREA NITROGEN BLOOD 29 mg/dL (9-23)
[2024-10-06 07:14] LABS: ALANINE AMINOTRANSFERASE < 7 IU/L (10-49)
[2024-10-06 07:15] LABS: ASPARTATE AMINOTRANSFERASE 8 IU/L (<34); BILIRUBIN TOTAL 0.2 mg/dL (0.1-1.0); PHOSPHORUS 3.3 mg/dL (2.5-4.9); PROTEIN TOTAL 5.3 g/dL (6.0-8.3)
[2024-10-06 07:50] LABS: HEMOGLOBIN. 6.9 g/dL (12.0-16.0)
[2024-10-06 07:51] LABS: CREATININE 3.2 mg/dL (0.6-1.0)
[2024-10-06] MEDS: NIFEDIPINE XL 90MG TAB PO SCH (09:01)
[2024-10-06] MEDS: HYDRALAZINE 20MG/ML VIAL IV PRN (16:33)
[2024-10-07] VITALS (7 sets, daily range): BP systolic 130–206; BP diastolic 57–76; PULSE 20–110; RESP 16–20; TEMP 36.55848–37.05852; O2SAT 97–100
[2024-10-07] MEDS: MAGNESIUM 2 G PREMIX 50 ML IV NR (13:25)
[2024-10-07 14:02] LABS: BASOPHILS % 0.1 % (0.0-2.0); EOSINOPHILS % 0.4 % (0.0-5.0); HEMATOCRIT. 26.4 % (36.0-48.0); HEMOGLOBIN. 8.6 g/dL (12.0-16.0); MEAN CORPUSCULAR HEMOGLOBIN 28.9 pg (28.0-32.0); MEAN CORPUSCULAR HGB CONC 32.7 g/dL (31.0-37.0); MEAN CORPUSCULAR VOLUME 88.5 fL (81.0-99.0); MEAN PLATELET VOLUME 8.5 fl (7.4-10.4); MONOCYTES % 12.2 % (2.0-8.0); NEUTROPHILS % 65.3 % (40.0-76.0); PLATELET 244 x1000/uL (130-400); RED BLOOD CELL COUNT 2.99 mill/uL (4.2-5.4); RED CELL DISTRIBUTION WIDTH 17.7 % (11.6-14.6); WHITE BLOOD COUNT 16.3 x1000/uL (4.5-11.0)
[2024-10-07 14:12] LABS: CALCIUM 9.8 mg/dL (8.7-10.4)
[2024-10-07 14:25] LABS: CREATININE 4.7 mg/dL (0.6-1.0)
[2024-10-08] VITALS (7 sets, daily range): BP systolic 146–203; BP diastolic 55–77; PULSE 87–106; RESP 19–20; TEMP 36.3918–38.00304; O2SAT 96–100
[2024-10-08 09:34] LABS: CHLORIDE 104 mEq/L (98-107); POTASSIUM 4.1 mEq/L (3.5-5.1); SODIUM 138 mEq/L (136-145)
[2024-10-08 09:36] LABS: CARBON DIOXIDE 25 mEq/L (21-32)
[2024-10-08 09:37] LABS: HEMATOCRIT. 25.8 % (36.0-48.0); HEMOGLOBIN. 8.3 g/dL (12.0-16.0); MEAN CORPUSCULAR HEMOGLOBIN 28.4 pg (28.0-32.0); MEAN CORPUSCULAR VOLUME 88.9 fL (81.0-99.0); MEAN PLATELET VOLUME 8.5 fl (7.4-10.4); PLATELET 245 x1000/uL (130-400); RED CELL DISTRIBUTION WIDTH 16.9 % (11.6-14.6); WHITE BLOOD COUNT 13.4 x1000/uL (4.5-11.0)
[2024-10-08 09:39] LABS: INR 0.9; PROTHROMBIN TIME 10.2 sec (9.6-11.0)
[2024-10-08 09:41] LABS: GLUCOSE 109 mg/dL (70-105); UREA NITROGEN BLOOD 50 mg/dL (9-23)
[2024-10-08 09:43] LABS: DIFFERENTIAL COMMENT 1
[2024-10-08 09:47] LABS: CREATININE 5.4 mg/dL (0.6-1.0)
[2024-10-08] MEDS: HYDRALAZINE 20MG/ML VIAL IV NR (10:45)
[2024-10-08] MEDS ORDERED: LIDOCAINE HCL 1% 20ML VIAL ONE (11:54)
[2024-10-08] MEDS ORDERED: PROPOFOL 200MG/20ML VIAL IV ONE (11:54)
[2024-10-08] MEDS ORDERED: MIDAZOLAM HCL 2 MG/2 ML VIAL ONE (12:10)
[2024-10-08] MEDS ORDERED: FENTANYL CITRATE/PF 50MCG/ML 2ML VIAL ONE (12:14)
[2024-10-08] MEDS ORDERED: LABETALOL 5MG/ML 20ML VIAL IV ONE (12:23)
[2024-10-08] MEDS ORDERED: ONDANSETRON HCL 4MG/2ML INJ IV PRN (12:30)
[2024-10-08] MEDS: HYDRALAZINE 20MG/ML VIAL IV ONE (12:30)
[2024-10-08] MEDS ORDERED: FENTANYL CITRATE/PF 50MCG/ML 2ML VIAL IV PRN (12:30)
[2024-10-08 15:23] LABS: ATYPICAL LYMPHOCYTES 3; PLATELET ESTIMATE NORMAL
[2024-10-09] VITALS (20 sets, daily range): BP systolic 115–205; BP diastolic 43–86; PULSE 75–126; RESP 14–20; TEMP 36.28068–37.16964; O2SAT 94–100
[2024-10-09 07:54] LABS: HEMATOCRIT 23.3 % (36.0-48.0); HEMOGLOBIN 7.6 g/dL (12.0-16.0); MEAN CORPUSCULAR HEMOGLOBIN 28.6 pg (28.0-32.0); MEAN CORPUSCULAR HGB CONC 32.4 g/dL (31.0-37.0); MEAN CORPUSCULAR VOLUME 88.3 fL (81.0-99.0); PLATELET 238 x1000/uL (130-400); RED BLOOD CELL COUNT 2.64 mill/uL (4.2-5.4); RED CELL DISTRIBUTION WIDTH 17.1 % (11.6-14.6)
[2024-10-09 08:05] LABS: CALCIUM 9.8 mg/dL (8.7-10.4); POTASSIUM 4.3 mEq/L (3.5-5.1)
[2024-10-09 08:11] LABS: CREATININE 5.9 mg/dL (0.6-1.0)
[2024-10-09] MEDS ORDERED: LIDOCAINE HCL 1% 10 MG/ML 10ML VIAL ONE (12:34)
[2024-10-09] MEDS: CEFAZOLIN 1000MG PREMIX 50 ML IV NR (12:45)
[2024-10-09] MEDS: FENTANYL CITRATE/PF 50MCG/ML 2ML VIAL IV ONE (12:55)
[2024-10-09] MEDS ORDERED: FENTANYL CITRATE/PF 50MCG/ML 2ML VIAL ONE (12:59)
[2024-10-09] MEDS: CEFTRIAXONE 1GM/50ML 50 ML IV SCH (14:57)
[2024-10-10] VITALS: BP 130/53; PULSE 102; RESP 19; TEMP 36.22512; O2SAT 92
[2024-10-10 04:00] VITALS: BP 122/56; PULSE 85; RESP 19; TEMP 36.33624; O2SAT 93
[2024-10-10 08:00] VITALS: BP 170/79; PULSE 111; RESP 18; TEMP 36.61404; O2SAT 98
[2024-10-10 12:14] VITALS: BP 154/60; PULSE 94; RESP 18; TEMP 36.50292; O2SAT 98
[2024-10-10 14:42] VITALS: RESP 18
[2024-10-10] MEDS: HYDROCODONE/ACETAMINOPHEN 5/325MG TABLET PO PRN (14:42)
[2024-10-10] MEDS ORDERED: NALOXONE HCL 0.4MG/ML VIAL IV PRN (14:45)
[2024-10-10 17:40] VITALS: BP 152/71; PULSE 98; TEMP 97.8; O2SAT 98
== END 2024-10-10 17:45 | disposition home health service (06) | DRG 720 ==
LOC: ER 23:36 → MICUSO 09-29 04:21 → EDBEDREQSVC 09-29 09:21 → 7WST 09-30 22:31
PROVIDERS: ADMIT Hospitalist; ATTEND Hospitalist
PROC: 5A09457 Assistance with Respiratory Ventilation, 24-96 Consecutive Hours, Continuous Positive Airway Pressure (ICD-10-PCS; 2024-09-28)
PROC: 05HY33Z Insertion of Infusion Device into Upper Vein, Percutaneous Approach (ICD-10-PCS; principal; 2024-09-29)
PROC: B54MZZA Ultrasonography of Right Upper Extremity Veins, Guidance (ICD-10-PCS; 2024-09-29)
PROC: 30233N1 Transfusion of Nonautologous Red Blood Cells into Peripheral Vein, Percutaneous Approach (ICD-10-PCS; 2024-10-02)
PROC: 02HV33Z Insertion of Infusion Device into Superior Vena Cava, Percutaneous Approach (ICD-10-PCS; 2024-10-03)
PROC: B548ZZA Ultrasonography of Superior Vena Cava, Guidance (ICD-10-PCS; 2024-10-03)
PROC: 5A1D70Z Performance of Urinary Filtration, Intermittent, Less than 6 Hours Per Day (ICD-10-PCS; 2024-10-03)
PROC: 5A1D70Z Performance of Urinary Filtration, Intermittent, Less than 6 Hours Per Day (ICD-10-PCS; 2024-10-05)
PROC: 0DB78ZX Excision of Stomach, Pylorus, Via Natural or Artificial Opening Endoscopic, Diagnostic (ICD-10-PCS; 2024-10-08)
PROC: 0JH63XZ Insertion of Tunneled Vascular Access Device into Chest Subcutaneous Tissue and Fascia, Percutaneous Approach (ICD-10-PCS; 2024-10-09)
PROC: 02HV33Z Insertion of Infusion Device into Superior Vena Cava, Percutaneous Approach (ICD-10-PCS; 2024-10-09)
PROC: B5181ZA Fluoroscopy of Superior Vena Cava using Low Osmolar Contrast, Guidance (ICD-10-PCS; 2024-10-09)
PROC: 06PY33Z Removal of Infusion Device from Lower Vein, Percutaneous Approach (ICD-10-PCS; 2024-10-09)
PROC: 0JB70ZZ Excision of Back Subcutaneous Tissue and Fascia, Open Approach (ICD-10-PCS; 2024-10-09)
PROC: 5A1D70Z Performance of Urinary Filtration, Intermittent, Less than 6 Hours Per Day (ICD-10-PCS; 2024-10-09)
DX: A41.9 Sepsis, unspecified organism (principal); J96.21 Acute and chronic respiratory failure with hypoxia; N17.0 Acute kidney failure with tubular necrosis; L89.153 Pressure ulcer of sacral region, stage 3; I13.2 Hypertensive heart and chronic kidney disease with heart failure and with stage 5 chronic kidney disease, or end stage renal disease; E87.20 Acidosis, unspecified; K29.01 Acute gastritis with bleeding; I27.20 Pulmonary hypertension, unspecified; N18.6 End stage renal disease; D63.1 Anemia in chronic kidney disease; E11.22 Type 2 diabetes mellitus with diabetic chronic kidney disease; J44.1 Chronic obstructive pulmonary disease with (acute) exacerbation; I50.32 Chronic diastolic (congestive) heart failure; Z99.81 Dependence on supplemental oxygen; I16.0 Hypertensive urgency; K80.20 Calculus of gallbladder without cholecystitis without obstruction; K21.9 Gastro-esophageal reflux disease without esophagitis; B35.1 Tinea unguium; I16.1 Hypertensive emergency; F14.10 Cocaine abuse, uncomplicated; N12 Tubulo-interstitial nephritis, not specified as acute or chronic; B18.2 Chronic viral hepatitis C; E03.9 Hypothyroidism, unspecified; E61.1 Iron deficiency; E78.5 Hyperlipidemia, unspecified; F03.93 Unspecified dementia, unspecified severity, with mood disturbance; K52.9 Noninfective gastroenteritis and colitis, unspecified; R70.1 Abnormal plasma viscosity; B96.20 Unspecified Escherichia coli [E. coli] as the cause of diseases classified elsewhere; F41.9 Anxiety disorder, unspecified; Z99.2 Dependence on renal dialysis; Z88.3 Allergy status to other anti-infective agents; Z88.2 Allergy status to sulfonamides; Z88.1 Allergy status to other antibiotic agents; Z87.891 Personal history of nicotine dependence; Z87.440 Personal history of urinary (tract) infections; Z79.899 Other long term (current) drug therapy; Z79.82 Long term (current) use of aspirin; Z79.4 Long term (current) use of insulin; Z88.6 Allergy status to analgesic agent; Z88.8 Allergy status to other drugs, medicaments and biological substances
CPT/HCPCS: 36415; 36556; 36558; 36573; 36589; 36600; 71045; 74176; 76604; 76700; 76770; 76937; 77001; 78227; 80048; 80053; 80061; 80076; 80305; 81003; 82270; 82375; 82550; 82607; 82728; 82746; 82805; 83540; 83550; 83605; 83735; 83880; 84100; 84145; 84439; 84443; 84484; 85014; 85018; 85025; 85027; 85044; 85651; 86038; 86078; 86160; 86705; 86706; 86709; 86850; 86900; 86920; 87340; 88305; 88312; 88313; 90935; 93005; 93306; 93970; 94070; 94640; 94660; 94664; 98960; 99152; 99153; 99291; A9537; C1725; C1750; C1752; C1769; J0360; J0690; J0696; J1200; J1642; J2250; J2270; J2405; J2543; J2704; J2919; J2920; J3010; J3475; J3490; J7030; J7050; P9016; G0500